=== PATIENT | male | born 1960 | race Caucasian/White ===

== ENCOUNTER 2017-02-05 17:59 | Emergency (ER) | payer OTHER, MEDICAID ==
[~2017-02-05] VITALS: Ht 172.7 cm; Wt 143.8 kg
[~2017-02-05 17:59] MED LIST: AUG500 PO; CLONIDINE HCL0.3 MG PO; LAC PO; LEV500 PO; METFORMIN HCL500 MG PO; MOTRIN800 MG PO; TAMSULOSIN HYD0.4 M1 PO; [UNRECOGNIZED DRUG - CODE] PO
[2017-02-05 18:19] VITALS: BP 127/87
== END 2017-02-05 21:32 | disposition left against medical advice (07) ==
LOC: ED 17:59
DX: Z53.21 Procedure and treatment not carried out due to patient leaving prior to being seen by health care provider (principal)

== ENCOUNTER 2017-02-17 23:07 | Inpatient (IN) | payer OTHER, MEDICAID ==
[~2017-02-17] VITALS: Ht 170.2 cm; Wt 138.2 kg
[2017-02-18] VITALS (7 sets, daily range): BP systolic 72–122; BP diastolic 31–59
[2017-02-18 00:09] LABS: PLATELET COUNT 133 x10^3mcL (130-400); RED CELL DISTRIBUTION WIDTH 14.1 % (11.5-14.5)
[2017-02-18 00:14] LABS: CALCIUM 8.6 mg/dL (8.5-10.1); CARBON DIOXIDE 20.7 mmol/L (21-32); CREATININE SERUM 2.3 mg/dL (0.7-1.3); POTASSIUM SERUM 3.4 mmol/L (3.5-5.1)
[2017-02-18 00:26] LABS: BILIRUBIN TOTAL 1.9 mg/dL (0.20-1.00); T4(THYROXINE) 12.3 ug/dL (4.7-13.3); TOTAL PROTEIN, SERUM 6.7 g/dL (6.4-8.2)
[2017-02-18 00:32] LABS: ALBUMIN 2.9 g/dL (3.4-5.0)
[2017-02-18 00:58] LABS: BAND NEUTROPHIL 9 % (0-10); METAMYELOCTE 6 % (0-2); MONOCYTE 3 % (0-7); MYELOCYTE 1 % (0-2); SEGMENTED NEUTROPHILS 78 % (37-75)
[2017-02-18 01:00] LABS: PLATELET MORPHOLOGY FEW LARGE PLATELETS; rbc morphology (normal/abnorm) NORMAL (NORMAL)
[2017-02-18] MEDS ORDERED: LAXATIVE5 M1 PO (01:03)
[2017-02-18] MEDS ORDERED: BACLOFEN10 MG PO (01:03)
[2017-02-18] MEDS ORDERED: LOSARTAN POTASS50 M1 PO (01:04)
[2017-02-18] MEDS ORDERED: ADV250/50 INH (01:04)
[2017-02-18] MEDS ORDERED: VENTOLIN H0.09 MG/A1 INH (01:04)
[2017-02-18] MEDS ORDERED: MONTELUKAST SOD10 M1 PO (01:04)
[2017-02-18 01:10] LABS: microscopic required? YES; urine erythrocyte 3+ (NEGATIVE)
[2017-02-18 02:34] LABS: CHOLESTEROL/HDL RATIO 2.1
[2017-02-18 02:40] LABS: FREE T4 1.89 ng/dL (0.76-1.46); FREE THYROXINE INDEX 4.1 ug/dL (1.4-4.5); T4(THYROXINE) 13.1 ug/dL (4.7-13.3)
[2017-02-18 03:56] LABS: T3 TOTAL 1.32 ng/mL
[2017-02-18 08:20] LABS: PLATELET COUNT 157 x10^3mcL (130-400); RED CELL DISTRIBUTION WIDTH 14.3 % (11.5-14.5)
[2017-02-18 08:31] LABS: CALCIUM 7.4 mg/dL (8.5-10.1); CARBON DIOXIDE 19.2 mmol/L (21-32); CREATININE SERUM 2.3 mg/dL (0.7-1.3); MAGNESIUM 1.1 mg/dL (1.8-2.4); PHOSPHOROUS 4.1 mg/dL (2.5-4.9); POTASSIUM SERUM 4.5 mmol/L (3.5-5.1)
[2017-02-18 09:42] LABS: BAND NEUTROPHIL 26 % (0-10); BASOPHIL 0 % (0-2); METAMYELOCTE 4 % (0-2); MONOCYTE 9 % (0-7); SEGMENTED NEUTROPHILS 57 % (37-75)
[2017-02-18 14:08] LABS: AMPHETAMINE QUAL UR NONE DETECTED (NEG <=1000)
[2017-02-19 03:46] VITALS: BP 142/56
[2017-02-19 05:58] LABS: PLATELET COUNT 182 x10^3mcL (130-400)
[2017-02-19 06:04] LABS: RED CELL DISTRIBUTION WIDTH 14.7 % (11.5-14.5)
[2017-02-19 06:05] LABS: BASOPHIL % 0 % (0-2)
[2017-02-19 06:17] LABS: CARBON DIOXIDE 23.7 mmol/L (21-32); CHLORIDE SERUM 110 mmol/L (98-107); CREATININE SERUM 1.3 mg/dL (0.7-1.3); GFR1 > 60 mL/min; GLUCOSE SERUM 175 mg/dL (74-106); MAGNESIUM 2.2 mg/dL (1.8-2.4); PHOSPHOROUS 2.7 mg/dL (2.5-4.9); POTASSIUM SERUM 3.8 mmol/L (3.5-5.1); SODIUM SERUM 142 mmol/L (136-145)
[2017-02-19 07:00] VITALS: BP 136/62
[2017-02-19 08:38] VITALS: Ht 170.2 cm; Wt 138.2 kg
[2017-02-19 11:00] VITALS: BP 121/55
[2017-02-19 21:15] VITALS: BP 132/69
[2017-02-20 05:56] VITALS: BP 145/76
[2017-02-20 07:19] LABS: BASOPHIL % 0.1 % (0-2); PLATELET COUNT 136 x10^3mcL (130-400)
[2017-02-20 07:47] LABS: CALCIUM 7.8 mg/dL (8.5-10.1); CARBON DIOXIDE 21.7 mmol/L (21-32); CHLORIDE SERUM 113 mmol/L (98-107); GFR1 > 60 mL/min; GLUCOSE SERUM 146 mg/dL (74-106); MAGNESIUM 2.3 mg/dL (1.8-2.4); PHOSPHOROUS 2.2 mg/dL (2.5-4.9); POTASSIUM SERUM 3.8 mmol/L (3.5-5.1); SODIUM SERUM 143 mmol/L (136-145)
[2017-02-20 08:57] LABS: RED CELL DISTRIBUTION WIDTH 14.6 % (11.5-14.5)
[2017-02-20 09:17] VITALS: BP 142/78
[2017-02-20 14:00] VITALS: BP 142/79
[2017-02-20 19:03] VITALS: BP 123/69
[2017-02-21 00:11] VITALS: BP 127/69
[2017-02-21 06:33] VITALS: BP 146/66
[2017-02-21 07:04] LABS: RED CELL DISTRIBUTION WIDTH 14.4 % (11.5-14.5)
[2017-02-21 07:11] LABS: PLATELET COUNT 122 x10^3mcL (130-400)
[2017-02-21 07:51] LABS: ALKALINE PHOSPHATASE 71 U/L (46-116); ALT/SGPT 82 U/L (16-63); AST/SGOT 79 U/L (15-37); BILIRUBIN TOTAL 0.59 mg/dL (0.20-1.00); CALCIUM 7.9 mg/dL (8.5-10.1); CARBON DIOXIDE 23.7 mmol/L (21-32); CHLORIDE SERUM 113 mmol/L (98-107); CREATININE SERUM 0.9 mg/dL (0.7-1.3); GFR1 > 60 mL/min; GLUCOSE SERUM 107 mg/dL (74-106); PHOSPHOROUS 2.7 mg/dL (2.5-4.9); POTASSIUM SERUM 3.6 mmol/L (3.5-5.1); SODIUM SERUM 144 mmol/L (136-145); TOTAL PROTEIN, SERUM 6.2 g/dL (6.4-8.2)
[2017-02-21 07:54] LABS: ALBUMIN 2.3 g/dL (3.4-5.0)
[2017-02-21 08:07] LABS: BAND NEUTROPHIL 1 % (0-10); MONOCYTE 3 % (0-7); SEGMENTED NEUTROPHILS 89 % (37-75); rbc morphology (normal/abnorm) NORMAL (NORMAL)
[2017-02-21 09:35] VITALS: BP 149/68
[2017-02-21 13:05] VITALS: BP 135/71
[2017-02-21] MEDS ORDERED: LAC PO (16:11)
[2017-02-21] MEDS ORDERED: LEVAQUIN500 M1 PO (16:11)
[2017-02-21 16:25] VITALS: BP 135/71
== END 2017-02-21 16:36 | disposition home or self-care (01) | DRG 871 ==
LOC: ED 23:07 → IC 02-18 01:11 → DU 02-18 01:11 → IC 02-18 02:48 → DU 02-19 17:07 → IC 02-19 17:48 → DU 02-19 17:51 → MU 02-21 09:24
PROVIDERS: Emergency Medicine; Family Medicine; ADMIT Family Medicine
PROC: 05HM33Z Insertion of Infusion Device into Right Internal Jugular Vein, Percutaneous Approach (ICD-10-PCS; principal; 2017-02-18)
PROC: B543ZZA Ultrasonography of Right Jugular Veins, Guidance (ICD-10-PCS; 2017-02-18)
DX: A41.51 Sepsis due to Escherichia coli [E. coli] (principal); R65.21 Severe sepsis with septic shock; I21.4 Non-ST elevation (NSTEMI) myocardial infarction; E43 Unspecified severe protein-calorie malnutrition; N17.0 Acute kidney failure with tubular necrosis; J96.00 Acute respiratory failure, unspecified whether with hypoxia or hypercapnia; G93.41 Metabolic encephalopathy; N39.0 Urinary tract infection, site not specified; E87.4 Mixed disorder of acid-base balance; N18.4 Chronic kidney disease, stage 4 (severe); Z68.42 Body mass index [BMI] 45.0-49.9, adult; I24.8 Other forms of acute ischemic heart disease; D68.69 Other thrombophilia; E83.42 Hypomagnesemia; E11.9 Type 2 diabetes mellitus without complications; E80.6 Other disorders of bilirubin metabolism; E87.6 Hypokalemia; G47.33 Obstructive sleep apnea (adult) (pediatric); I12.9 Hypertensive chronic kidney disease with stage 1 through stage 4 chronic kidney disease, or unspecified chronic kidney disease; E66.01 Morbid (severe) obesity due to excess calories; E83.51 Hypocalcemia; E83.39 Other disorders of phosphorus metabolism; I95.1 Orthostatic hypotension; N40.0 Benign prostatic hyperplasia without lower urinary tract symptoms; Z79.82 Long term (current) use of aspirin; Z96.652 Presence of left artificial knee joint; Z87.891 Personal history of nicotine dependence; Z79.84 Long term (current) use of oral hypoglycemic drugs
CPT/HCPCS: 36556; 36600; 80307; 83880; 84439; 94150; G0480; J0696; J1170; J1642; J1720; J1885; J1940; J1956; J2060; J2185; J2270; J2370; J2543; J2930; J3370; J3475; J3490; J7030; J7040; J7620; J7633; Q0092

== ENCOUNTER 2017-02-25 20:55 | Emergency (ER) | payer OTHER, MEDICAID ==
[~2017-02-25 20:55] MED LIST changes: +ADV250/50 INH; +BACLOFEN10 MG PO; +LAXATIVE5 M1 PO; +LEVAQUIN500 M1 PO; +LOSARTAN POTASS50 M1 PO; +MONTELUKAST SOD10 M1 PO; +VENTOLIN H0.09 MG/A1 INH
[2017-02-25 22:07] LABS: BASOPHIL % 0.4 % (0-2); PLATELET COUNT 165 x10^3mcL (130-400); RED CELL DISTRIBUTION WIDTH 14.3 % (11.5-14.5)
[2017-02-25 22:20] LABS: CALCIUM 8.8 mg/dL (8.5-10.1); CARBON DIOXIDE 28.6 mmol/L (21-32); CHLORIDE SERUM 105 mmol/L (98-107); CREATININE SERUM 0.8 mg/dL (0.7-1.3); GFR1 > 60 mL/min; GLUCOSE SERUM 104 mg/dL (74-106); POTASSIUM SERUM 3.5 mmol/L (3.5-5.1); SODIUM SERUM 140 mmol/L (136-145)
[2017-02-25 22:25] LABS: ALBUMIN 2.8 g/dL (3.4-5.0); ALKALINE PHOSPHATASE 132 U/L (46-116); ALT/SGPT 88 U/L (16-63); AST/SGOT 69 U/L (15-37); BILIRUBIN TOTAL 0.8 mg/dL (0.20-1.00); TOTAL PROTEIN, SERUM 7.2 g/dL (6.4-8.2)
[2017-02-25 22:36] LABS: CK-MB 0.7 ng/mL (0-3.6)
[2017-02-25 22:49] LABS: microscopic required? YES; urine erythrocyte 1+ (NEGATIVE)
[2017-02-26 00:18] VITALS: BP 179/91
== END 2017-02-26 00:18 | disposition home or self-care (01) ==
LOC: ED 20:55
PROVIDERS: Emergency Medicine
DX: R60.0 Localized edema (principal); I10 Essential (primary) hypertension; J45.909 Unspecified asthma, uncomplicated; R73.03 Prediabetes; N40.0 Benign prostatic hyperplasia without lower urinary tract symptoms; Z79.899 Other long term (current) drug therapy
CPT/HCPCS: 83880; Q0092

== ENCOUNTER 2017-06-09 15:03 | Emergency (ER) | payer MEDICARE, MEDICAID ==
[2017-06-09 19:04] VITALS: BP 138/80
== END 2017-06-09 19:04 | disposition home or self-care (01) ==
LOC: ED 15:03
DX: J45.901 Unspecified asthma with (acute) exacerbation (principal); I10 Essential (primary) hypertension; E11.9 Type 2 diabetes mellitus without complications; Z79.84 Long term (current) use of oral hypoglycemic drugs
CPT/HCPCS: J7512; J7613; J7644

== ENCOUNTER 2017-08-08 13:11 | Emergency (ER) | payer MEDICARE, MEDICAID ==
[~2017-08-08] VITALS: Ht 172.7 cm; Wt 138.3 kg
[2017-08-08 14:41] VITALS: BP 151/92
== END 2017-08-08 14:43 | disposition home or self-care (01) ==
LOC: ED 13:11
DX: S81.811A Laceration without foreign body, right lower leg, initial encounter (principal); W22.03XA Walked into furniture, initial encounter; Y93.89 Activity, other specified; Y92.89 Other specified places as the place of occurrence of the external cause; Y99.8 Other external cause status

== ENCOUNTER 2017-08-22 10:54 | Inpatient (IN) | payer MEDICARE, MEDICAID ==
[~2017-08-22] VITALS: Ht 172.7 cm; Wt 141.1 kg
[~2017-08-22 10:54] MED LIST changes: +MOT800 PO; -MOTRIN800 MG PO
[2017-08-22 11:59] LABS: BASOPHIL % 0.3 % (0-2)
[2017-08-22 12:00] LABS: PLATELET COUNT 90 x10^3mcL (130-400); RED CELL DISTRIBUTION WIDTH 15.2 % (11.5-14.5)
[2017-08-22] MEDS ORDERED: TERAZOSIN HCL2 MG PO (12:06)
[2017-08-22] MEDS ORDERED: ALDACTONE50 MG PO (12:06)
[2017-08-22 12:15] LABS: CALCIUM 8.9 mg/dL (8.5-10.1); CARBON DIOXIDE 23.7 mmol/L (21-32); CREATININE SERUM 1.7 mg/dL (0.7-1.3); POTASSIUM SERUM 4.4 mmol/L (3.5-5.1)
[2017-08-22 12:23] LABS: ALBUMIN 2.8 g/dL (3.4-5.0)
[2017-08-22 13:46] LABS: CHOLESTEROL/HDL RATIO 2.8; MAGNESIUM 1.9 mg/dL (1.8-2.4); PHOSPHOROUS 3.4 mg/dL (2.5-4.9)
[2017-08-22 13:50] LABS: T3 TOTAL 1.18 ng/mL
[2017-08-22 13:51] LABS: FREE T4 1.4 ng/dL (0.76-1.46); FREE THYROXINE INDEX 3.9 ug/dL (1.4-4.5); T4(THYROXINE) 13.1 ug/dL (4.7-13.3)
[2017-08-22 14:40] LABS: UA SPECIFIC GRAVITY 1.025 (1.005-1.035); microscopic required? YES; urine erythrocyte 3+ (NEGATIVE)
[2017-08-22 14:52] VITALS: BP 118/47
[2017-08-22 14:57] LABS: AMPHETAMINE QUAL UR NONE DETECTED (NEG <=1000)
[2017-08-22 17:47] VITALS: BP 135/55
[2017-08-22 18:00] VITALS: BP 135/55
[2017-08-22 18:15] VITALS: BP 135/55
[2017-08-22 22:06] VITALS: BP 137/58
[2017-08-23 06:23] VITALS: BP 132/59
[2017-08-23 06:53] LABS: BASOPHIL % 0.4 % (0-2)
[2017-08-23 06:56] LABS: CALCIUM 8.5 mg/dL (8.5-10.1); CARBON DIOXIDE 24.5 mmol/L (21-32); CHLORIDE SERUM 109 mmol/L (98-107); GFR1 > 60 mL/min; GLUCOSE SERUM 90 mg/dL (74-106); MAGNESIUM 1.8 mg/dL (1.8-2.4); PHOSPHOROUS 3.5 mg/dL (2.5-4.9); POTASSIUM SERUM 4.9 mmol/L (3.5-5.1); SODIUM SERUM 140 mmol/L (136-145)
[2017-08-23 07:02] LABS: PLATELET COUNT 89 x10^3mcL (130-400); RED CELL DISTRIBUTION WIDTH 15.6 % (11.5-14.5)
[2017-08-23 09:23] VITALS: BP 143/59
[2017-08-23 17:38] VITALS: BP 142/78
[2017-08-23 21:20] VITALS: BP 111/63
[2017-08-24 06:17] VITALS: BP 136/78
[2017-08-24 07:10] LABS: BASOPHIL % 0.6 % (0-2); CALCIUM 8.6 mg/dL (8.5-10.1); CARBON DIOXIDE 23.9 mmol/L (21-32); CHLORIDE SERUM 108 mmol/L (98-107); CREATININE SERUM 0.8 mg/dL (0.7-1.3); GFR1 > 60 mL/min; GLUCOSE SERUM 94 mg/dL (74-106); POTASSIUM SERUM 4.4 mmol/L (3.5-5.1); SODIUM SERUM 139 mmol/L (136-145)
[2017-08-24 07:11] LABS: PLATELET COUNT 99 x10^3mcL (130-400); RED CELL DISTRIBUTION WIDTH 15.5 % (11.5-14.5)
[2017-08-24 07:40] VITALS: BP 136/69
[2017-08-24 08:00] VITALS: BP 136/69
[2017-08-24] MEDS ORDERED: LAC PO (10:12)
[2017-08-24] MEDS ORDERED: BACTRIM DS1 TAB PO (12:18)
[2017-08-24 13:14] VITALS: BP 136/61
[2017-08-24 13:15] VITALS: BP 136/61
== END 2017-08-24 14:49 | disposition home or self-care (01) | DRG 871 ==
LOC: ED 10:54 → DU 12:37
PROVIDERS: Emergency Medicine; ADMIT Family Medicine
DX: A41.9 Sepsis, unspecified organism (principal); R65.21 Severe sepsis with septic shock; E43 Unspecified severe protein-calorie malnutrition; N17.0 Acute kidney failure with tubular necrosis; L03.115 Cellulitis of right lower limb; Z68.42 Body mass index [BMI] 45.0-49.9, adult; B96.20 Unspecified Escherichia coli [E. coli] as the cause of diseases classified elsewhere; S81.811S Laceration without foreign body, right lower leg, sequela; B18.2 Chronic viral hepatitis C; C44.212 Basal cell carcinoma of skin of right ear and external auricular canal; D69.6 Thrombocytopenia, unspecified; I87.8 Other specified disorders of veins; I10 Essential (primary) hypertension; D64.9 Anemia, unspecified; R31.9 Hematuria, unspecified; J45.909 Unspecified asthma, uncomplicated; M19.90 Unspecified osteoarthritis, unspecified site; N40.0 Benign prostatic hyperplasia without lower urinary tract symptoms; E66.01 Morbid (severe) obesity due to excess calories; Z96.652 Presence of left artificial knee joint; Z79.84 Long term (current) use of oral hypoglycemic drugs; W22.8XXS Striking against or struck by other objects, sequela
CPT/HCPCS: 83880; 84439; 94150; J0696; J1940; J7030; J7040; J7620; Q0092

== ENCOUNTER 2017-09-10 13:39 | Inpatient (IN) | payer OTHER, MEDICAID ==
[~2017-09-10] VITALS: Ht 172.7 cm; Wt 132.5 kg
[~2017-09-10 13:39] MED LIST changes: +ALDACTONE50 MG PO; +BACTRIM DS1 TAB PO; +TERAZOSIN HCL2 MG PO
[2017-09-10 17:20] LABS: BASOPHIL % 0.5 % (0-2)
[2017-09-10 17:24] LABS: PLATELET COUNT 89 x10^3mcL (130-400); RED CELL DISTRIBUTION WIDTH 14.7 % (11.5-14.5)
[2017-09-10 17:37] LABS: ALBUMIN 3.4 g/dL (3.4-5.0); ALKALINE PHOSPHATASE 88 U/L (46-116); ALT/SGPT 121 U/L (16-63); AST/SGOT 109 U/L (15-37); BILIRUBIN TOTAL 0.6 mg/dL (0.20-1.00); CALCIUM 8.8 mg/dL (8.5-10.1); CARBON DIOXIDE 20.1 mmol/L (21-32); CHLORIDE SERUM 108 mmol/L (98-107); CREATININE SERUM 2.3 mg/dL (0.7-1.3); GFR1 31 mL/min; GLUCOSE SERUM 101 mg/dL (74-106); SODIUM SERUM 135 mmol/L (136-145); TOTAL PROTEIN, SERUM 7.7 g/dL (6.4-8.2)
[2017-09-10 17:39] LABS: POTASSIUM SERUM 7.7 mmol/L (3.5-5.1)
[2017-09-10 17:43] LABS: C REACTIVE PROTEIN < 0.2 mg/dL (<=0.9)
[2017-09-10 17:54] LABS: T3 TOTAL 1.27 ng/mL
[2017-09-10 18:03] LABS: microscopic required? YES; urine erythrocyte NEGATIVE (NEGATIVE)
[2017-09-10 18:07] LABS: FREE T4 1.34 ng/dL (0.76-1.46); FREE THYROXINE INDEX 3.7 ug/dL (1.4-4.5)
[2017-09-10 18:14] LABS: ERYTHROCYTE SED RATE 44 mm/hr (0-20)
[2017-09-10 19:07] LABS: PHOSPHOROUS 5.1 mg/dL (2.5-4.9)
[2017-09-10 19:08] LABS: CHOLESTEROL/HDL RATIO 2.4
[2017-09-10 19:19] LABS: AMPHETAMINE QUAL UR NONE DETECTED (NEG <=1000)
[2017-09-10] MEDS ORDERED: NORCO1 TA2 PO (19:30)
[2017-09-10 19:51] VITALS: BP 139/49
[2017-09-10 22:00] VITALS: BP 139/45; BP 139/49
[2017-09-11 05:57] VITALS: BP 130/70
[2017-09-11 06:47] LABS: CALCIUM 9.1 mg/dL (8.5-10.1); CARBON DIOXIDE 18.8 mmol/L (21-32); CREATININE SERUM 1.5 mg/dL (0.7-1.3); MAGNESIUM 1.8 mg/dL (1.8-2.4); PHOSPHOROUS 4.6 mg/dL (2.5-4.9)
[2017-09-11 07:07] LABS: POTASSIUM SERUM 6.1 mmol/L (3.5-5.1)
[2017-09-11 08:05] LABS: CARBON DIOXIDE 18.9 mmol/L (21-32); CREATININE SERUM 1.4 mg/dL (0.7-1.3)
[2017-09-11 08:25] LABS: POTASSIUM SERUM 6.2 mmol/L (3.5-5.1)
[2017-09-11 08:46] LABS: BASOPHIL % 0.2 % (0-2)
[2017-09-11 09:24] VITALS: BP 153/72
[2017-09-11 09:24] LABS: PLATELET COUNT 94 x10^3mcL (130-400); RED CELL DISTRIBUTION WIDTH 14.9 % (11.5-14.5)
[2017-09-11 12:52] LABS: CALCIUM 9.3 mg/dL (8.5-10.1); CARBON DIOXIDE 20.9 mmol/L (21-32); CHLORIDE SERUM 109 mmol/L (98-107); CREATININE SERUM 1.3 mg/dL (0.7-1.3); GFR1 > 60 mL/min; GLUCOSE SERUM 99 mg/dL (74-106); POTASSIUM SERUM 5.5 mmol/L (3.5-5.1); SODIUM SERUM 139 mmol/L (136-145)
[2017-09-11 13:47] VITALS: BP 154/84
[2017-09-11 16:08] VITALS: BP 160/75
[2017-09-11 21:20] VITALS: BP 132/68
[2017-09-12 06:27] LABS: BASOPHIL % 0.5 % (0-2); RED CELL DISTRIBUTION WIDTH 14.5 % (11.5-14.5)
[2017-09-12 06:34] VITALS: BP 146/76
[2017-09-12 06:41] LABS: CALCIUM 8.4 mg/dL (8.5-10.1); CARBON DIOXIDE 19.3 mmol/L (21-32); CHLORIDE SERUM 110 mmol/L (98-107); CREATININE SERUM 1.1 mg/dL (0.7-1.3); GFR1 > 60 mL/min; GLUCOSE SERUM 108 mg/dL (74-106); MAGNESIUM 1.7 mg/dL (1.8-2.4); PHOSPHOROUS 4.1 mg/dL (2.5-4.9); POTASSIUM SERUM 4.7 mmol/L (3.5-5.1); SODIUM SERUM 139 mmol/L (136-145)
[2017-09-12 07:19] LABS: PLATELET COUNT 94 x10^3mcL (130-400)
[2017-09-12] MEDS ORDERED: LASIX20 MG PO (10:09)
[2017-09-12] MEDS ORDERED: MAGNESIUM OXID400 MG PO (10:10)
[2017-09-12 11:03] VITALS: BP 146/76
== END 2017-09-12 12:50 | disposition home or self-care (01) | DRG 682 ==
LOC: ED 13:39 → DU 18:41 → MU 18:41 → DU 22:27 → MU 22:27 → DU 09-12 12:50
PROVIDERS: Family Medicine; Specialist; ADMIT Family Medicine
DX: I12.9 Hypertensive chronic kidney disease with stage 1 through stage 4 chronic kidney disease, or unspecified chronic kidney disease (principal); N17.0 Acute kidney failure with tubular necrosis; Z68.41 Body mass index [BMI] 40.0-44.9, adult; E87.5 Hyperkalemia; E11.9 Type 2 diabetes mellitus without complications; N18.9 Chronic kidney disease, unspecified; J45.909 Unspecified asthma, uncomplicated; R80.9 Proteinuria, unspecified; B18.2 Chronic viral hepatitis C; G47.33 Obstructive sleep apnea (adult) (pediatric); M17.11 Unilateral primary osteoarthritis, right knee; Z96.652 Presence of left artificial knee joint; Z79.84 Long term (current) use of oral hypoglycemic drugs
CPT/HCPCS: 36600; 83880; 84439; 94150; J1815; J3490; J7030; J7620; Q0092

== ENCOUNTER 2017-09-13 15:35 | Emergency (ER) | payer OTHER, MEDICAID ==
[~2017-09-13] VITALS: Ht 172.7 cm; Wt 136.5 kg
[~2017-09-13 15:35] MED LIST changes: +LASIX20 MG PO; +MAGNESIUM OXID400 MG PO; +NORCO1 TA2 PO
[2017-09-13 17:02] LABS: BASOPHIL % 0.4 % (0-2)
[2017-09-13 17:09] LABS: PLATELET COUNT 85 x10^3mcL (130-400); RED CELL DISTRIBUTION WIDTH 14.8 % (11.5-14.5)
[2017-09-13 17:44] LABS: CALCIUM 7.9 mg/dL (8.5-10.1); CARBON DIOXIDE 20.5 mmol/L (21-32); POTASSIUM SERUM 5.3 mmol/L (3.5-5.1)
[2017-09-13 17:50] LABS: BILIRUBIN TOTAL 0.65 mg/dL (0.20-1.00); TOTAL PROTEIN, SERUM 6.8 g/dL (6.4-8.2)
[2017-09-13 17:51] LABS: ALBUMIN 2.9 g/dL (3.4-5.0)
[2017-09-13 18:33] VITALS: BP 86/76
== END 2017-09-13 18:33 | disposition home or self-care (01) ==
LOC: ED 15:35
PROVIDERS: Emergency Medicine
DX: N28.9 Disorder of kidney and ureter, unspecified (principal); E87.5 Hyperkalemia; E86.0 Dehydration; J45.909 Unspecified asthma, uncomplicated; I10 Essential (primary) hypertension
CPT/HCPCS: 36415

== ENCOUNTER 2017-09-24 13:49 | Emergency (ER) | payer MEDICARE, MEDICAID ==
[2017-09-24 15:05] VITALS: BP 123/58
== END 2017-09-24 16:53 | disposition left against medical advice (07) ==
LOC: ED 13:49
DX: Z53.21 Procedure and treatment not carried out due to patient leaving prior to being seen by health care provider (principal)

== ENCOUNTER 2018-01-16 21:20 | Emergency (ER) | payer OTHER, MEDICAID ==
[~2018-01-16] VITALS: Ht 172.7 cm; Wt 149.7 kg
[2018-01-16 21:52] VITALS: Ht 172.7 cm; Wt 149.7 kg
[2018-01-17 00:05] VITALS: BP 144/76
== END 2018-01-17 00:05 | disposition home or self-care (01) ==
LOC: ED 21:20
DX: N39.0 Urinary tract infection, site not specified (principal); I10 Essential (primary) hypertension; J45.909 Unspecified asthma, uncomplicated; G89.29 Other chronic pain; M25.569 Pain in unspecified knee

== ENCOUNTER 2018-05-16 10:14 | Emergency (ER) | payer OTHER, MEDICAID ==
[~2018-05-16] VITALS: Ht 172.7 cm; Wt 146.5 kg
[2018-05-16 10:20] VITALS: BP 125/85; Ht 172.7 cm; Wt 146.5 kg
== END 2018-05-16 13:19 | disposition home or self-care (01) ==
LOC: ED 10:14
DX: S81.012A Laceration without foreign body, left knee, initial encounter (principal); E11.9 Type 2 diabetes mellitus without complications; I10 Essential (primary) hypertension; W18.39XA Other fall on same level, initial encounter; Y93.89 Activity, other specified; Y92.89 Other specified places as the place of occurrence of the external cause; Y99.8 Other external cause status
CPT/HCPCS: J2001

== ENCOUNTER 2018-12-29 09:31 | Emergency (ER) | payer OTHER, MEDICAID ==
[~2018-12-29] VITALS: Ht 172.7 cm; Wt 151.0 kg
[2018-12-29 09:36] VITALS: Ht 172.7 cm; Wt 151.0 kg
[2018-12-29 13:30] VITALS: BP 155/91
== END 2018-12-29 13:30 | disposition home or self-care (01) ==
LOC: ED 09:31
DX: I10 Essential (primary) hypertension (principal); F41.9 Anxiety disorder, unspecified; J45.909 Unspecified asthma, uncomplicated; G89.29 Other chronic pain

== ENCOUNTER 2019-03-17 08:09 | Emergency (ER) | payer OTHER, MEDICAID ==
[~2019-03-17] VITALS: Ht 172.7 cm; Wt 143.8 kg
[2019-03-17 08:24] VITALS: Ht 172.7 cm; Wt 143.8 kg
[2019-03-17 09:39] LABS: UA SPECIFIC GRAVITY 1.025 (1.005-1.035); microscopic required? YES; urine erythrocyte 3+ (NEGATIVE)
[2019-03-17 09:53] VITALS: BP 139/78
== END 2019-03-17 09:53 | disposition home or self-care (01) ==
LOC: ED 08:09
PROVIDERS: Emergency Medicine
DX: N39.0 Urinary tract infection, site not specified (principal); J45.909 Unspecified asthma, uncomplicated; I10 Essential (primary) hypertension; G89.29 Other chronic pain; M25.569 Pain in unspecified knee
CPT/HCPCS: 82962

== ENCOUNTER 2019-04-12 12:57 | Emergency (ER) | payer OTHER, MEDICAID ==
[~2019-04-12] VITALS: Ht 167.6 cm; Wt 144.7 kg
[2019-04-12 13:02] VITALS: Ht 167.6 cm; Wt 144.7 kg
[2019-04-12 15:03] LABS: microscopic required? YES; urine erythrocyte NEGATIVE (NEGATIVE)
[2019-04-12 15:07] VITALS: BP 138/94
== END 2019-04-12 15:07 | disposition home or self-care (01) ==
LOC: ED 12:57
PROVIDERS: Emergency Medicine
DX: N30.00 Acute cystitis without hematuria (principal); J45.909 Unspecified asthma, uncomplicated; I10 Essential (primary) hypertension; G89.29 Other chronic pain
CPT/HCPCS: 82962

== ENCOUNTER 2019-05-24 11:32 | Inpatient (IN) | payer OTHER, MEDICAID ==
[~2019-05-24] VITALS: Ht 170.2 cm; Wt 125.4 kg
[2019-05-24 11:44] VITALS: Ht 170.2 cm; Wt 125.4 kg
--- NOTE | 2019-05-24 12:15 | NUR ---
PATIENT PRESENTS TO ED WITH C/O SOB SINCE 399 TODAY. STS HAS HISTORY OF ASTHMA. INSPIRATORY CRACKLES NOTED. DR. MUÑOZ AT BEDSIDE PERFORMED MSE
[2019-05-24 12:32] LABS: BASOPHIL % 0.2 % (0-2)
[2019-05-24 12:35] LABS: PLATELET COUNT 99 x10^3mcL (130-400); RED CELL DISTRIBUTION WIDTH 16.6 % (11.5-14.5)
[2019-05-24 12:41] LABS: CALCIUM 9.1 mg/dL (8.5-10.1); CARBON DIOXIDE 25.9 mmol/L (21-32); CHLORIDE SERUM 104 mmol/L (98-107); GFR1 > 60 mL/min; GLUCOSE SERUM 87 mg/dL (74-106); POTASSIUM SERUM 4.3 mmol/L (3.5-5.1); SODIUM SERUM 138 mmol/L (136-145)
[2019-05-24 12:54] LABS: ALKALINE PHOSPHATASE 69 U/L (46-116); ALT/SGPT 39 U/L (16-63); AST/SGOT 31 U/L (15-37); BILIRUBIN TOTAL 1.1 mg/dL (0.20-1.00); TOTAL PROTEIN, SERUM 7.3 g/dL (6.4-8.2)
[2019-05-24 13:03] LABS: ALBUMIN 3.3 g/dL (3.4-5.0)
[2019-05-24 13:22] LABS: MAGNESIUM 1.7 mg/dL (1.8-2.4); PHOSPHOROUS 2.6 mg/dL (2.5-4.9)
[2019-05-24] MEDS ORDERED: MOT800 PO (13:30)
[2019-05-24] MEDS ORDERED: NOR10T PO (13:30)
[2019-05-24] MEDS ORDERED: BREO ELLIPTA1 PO1 IH (13:30)
[2019-05-24] MEDS ORDERED: INCRUSE EL62.5 MCG/A IH (13:31)
[2019-05-24] MEDS ORDERED: POTASSIUM CHLO10 MEQ PO (13:31)
[2019-05-24] MEDS ORDERED: KAPVAY0.1 MG PO (13:32)
[2019-05-24] MEDS ORDERED: VITAMIN D2400 UNIT (13:33)
[2019-05-24] MEDS ORDERED: BENICAR HCT1 TAB PO (13:35)
[2019-05-24] MEDS ORDERED: ADV250/50 INH (13:35)
[2019-05-24 13:57] LABS: microscopic required? NO
[2019-05-24 14:17] LABS: urine erythrocyte NEGATIVE (NEGATIVE)
--- NOTE | 2019-05-24 15:08 | NUR ---
PATIENT RESTING AT BEDSIDE IN NAD
--- NOTE | 2019-05-24 15:25 | NUR ---
REPORT GIVEN TO CHIN BECK
[2019-05-24 16:20] VITALS: BP 132/72
--- NOTE | 2019-05-24 16:24 | NUR ---
RECEIVED PT FROM ED VIA SHAKIRA. ORIENTED PT TO ROOM AND SURRUONDINGS. IV NOTED TO RH PATENT AND INTACT. TELE 4 PLACED ON PT READING NSR. INSTRUCTED PT ON THE USE OF CALL LIGHT FOR ASSISTANCE. ENDORSED PT TO PRIMARY NURSE EBONY
--- NOTE | 2019-05-24 18:11 | NUR ---
PT IS SITTING UP AT THE SIDE OF THE BED. PT LOOKS TO BE IN NO ACUTE DISTRESS AT THIS TIME AND DENIES ANY PAIN. RESPIRATIONS EVEN AND UNLABORED ON 2L NC. IV TO RIGHT HAND IS PATENT WITH NO SIGNS OF ERYTHEMA OR SWELLING WITH IV FLUIDS INFUSING, IV TO LEFT HAND IS PATENT WITH NO SIGNS OF ERYTHEMA OR SWELLING AND IS H/L. SWELLING TO BLE AND DISCOLORATION PRESENT. PT HAS TREMORS TO BUE AND PT STATES THAT THE TREMORS ARE NORMAL AND CHRONIC. PT'S FAMILY MEMBER AT BEDSIDE. BED IN LOWEST POSITION, CALL LIGHT WITHIN REACH. WILL CONITNUE TO MONITOR.
--- NOTE | 2019-05-24 18:14 | NUR ---
WILL ENDORSE TO ONCOMING SHIFT.
--- NOTE | 2019-05-24 19:24 | NUR ---
RECEIVED PT FROM PREVIOUS SHIFT. PT A/OX4. SITTING UP AT BEDSIDE. DENIES PAIN. DENIES SOB ON RA. IV PATENT, INFUSING NS AT 40ML/HR WITH NO S/S OF INFILTRATION. CALL LIGHT WITHIN REACH, BED IN LOW POSITION. WILL CONTINUE TO MONITOR.
[2019-05-24 21:29] VITALS: BP 129/71
[2019-05-25 05:57] VITALS: BP 136/68
--- NOTE | 2019-05-25 07:05 | NUR ---
RECEIVED PT FROM NIGHT NURSE. PT IS LAYING DOWN IN BED WITH HOB UP AND EYES OPEN WATCHING TV. PT LOOKS TO BE IN NO ACUTE DISTRESS AND DENIES ANY PAIN AT THIS TIME. RESPIRATIONS EVEN AND UNLABORED ON 2L NC. IV SITE TO LEFT AND RIGHT HAND ARE PATENT WITH NO SIGNS OF ERYTHEMA OR SWELLING WITH IV FLUIDS INFUSING TO RIGHT HAND. FAMILY REQUESTING TO HAVE BLOOD PRESSURE MEDICATION CHANGED TO HOME MEDICATION, WILL PAGE THE DR. TELE MONITOR 4 PRESENT. BED IN LOWEST POSITION, CALL LIGHT WITHIN REACH. WILL CONITNUE TO MONITOR.
[2019-05-25 07:22] LABS: BASOPHIL % 0 % (0-2); PLATELET COUNT 95 x10^3mcL (130-400)
[2019-05-25 07:27] LABS: CALCIUM 8.5 mg/dL (8.5-10.1); CARBON DIOXIDE 20.8 mmol/L (21-32); CHLORIDE SERUM 107 mmol/L (98-107); GFR1 > 60 mL/min; GLUCOSE SERUM 157 mg/dL (74-106); POTASSIUM SERUM 4.3 mmol/L (3.5-5.1); SODIUM SERUM 140 mmol/L (136-145)
[2019-05-25 08:06] VITALS: BP 113/79
[2019-05-25 12:16] VITALS: BP 159/59
--- NOTE | 2019-05-25 12:20 | NUR ---
PT IS SITTING UP ON THE EDGE OF THE BED READING. PT LOOKS TO BE IN NO ACUTE DISTRESS AT THIS TIME. RESPIRATIONS EVEN AND UNLABORED ON ROOM AIR AND IS SATTING AT 97%. PT DENIES ANY SOB AND STATES THAT HE HAS BEEN ABLE TO WALK TO THE RESTROOM WITHOUT DIFFICULTY. DR. WEINER GAVE PT AN INCENTIVE SPIROMETER, REINFORCE EDUCATION ON THE USE OF INCENTIVE SPIROMETER AND PT VERBALIZED THE USE OF THE INCENTIVE SPIROMETER. IV TO RIGHT HAND PATENT AND INFUSING WITH NO SIGNS OF ERYTHEMA OR SWELLING. BED IN LOWEST POSITION, CALL LIGHT WIHTIN REACH. WILL ENDORSE TO ONCOMING SHIFT.
--- NOTE | 2019-05-25 14:15 | NUR ---
PT COMPLAINING OF PAIN 7/10 TO THE RIGHT KNEE. PT REQUESTING PAIN MEDICATION. LEG ELEVATED. WILL MEDICATE ACCORDING TO EMAR.
[2019-05-25 16:00] VITALS: BP 125/56
--- NOTE | 2019-05-25 19:01 | NUR ---
PT IS SITTING UP ON THE EDGE OF THE BED. PT LOOKS TO BE IN NO ACUTE DISTRESS AT THIS TIME. RESPIRATIONS EVEN AND UNLABORED ON ROOM AIR AND DENIES ANY SOB AT THIS TIME. IV SITE PATENT WITH NO SIGNS OF ERYTHEMA OR SWELLING WITH IV FLUIDS INFUSING. BED IN LOWEST POSITION, CALL LIGHT WITHIN REACH. WILL ENDORSE TO ONCOMING SHIFT.
--- NOTE | 2019-05-25 19:05 | NUR ---
RECEIVED PT FROM PREVIOUS SHIFT NURSE. PT AOX4, DENIES KAUFFMAN/DIZZINESS. SPEECH CLEAR. ON TELE #8, SR WITH ELEVATED T WAVE, HR 81. DENIES CP/PRESSURE. DENIES SOB/DIFFICULTY BREATHING, ON RA. IV TO R. HAND, INTACT AND PATENT. BED IN LOWEST POSITION. CALL LIGHT WITHIN REACH. WILL CONTINUE TO MONITOR.
[2019-05-25 19:56] VITALS: BP 134/74
--- NOTE | 2019-05-26 01:16 | NUR ---
PT RESTING IN BED. RR EVEN AND UNLABORED. IN NO ACUTE DISTRESS. CALL LIGHT WITHIN REACH. BED IN LOWEST POSITION. WILL CONTINUE TO MONITOR.
[2019-05-26 05:45] VITALS: BP 124/69
--- NOTE | 2019-05-26 07:11 | NUR ---
RECEIVED PT FROM NIGHT NURSE. PT IS SITTING UP AT THE EDGE OF THE BED. RESPIRATIONS EVEN AND UNLABORED ON ROOM AIR. PT LOOKS TO BE IN NO ACUTE DISTRESS AND DENIES ANY PAIN AT THIS TIME. TELE MONITOR PRESENT. IV TO RIGHT HAND PATENT WITH NO SIGNS OF ERYTHEMA OR SWELLING WITH IV FLUIDS INFUSING. BED IN LOWEST POSITION, CALL LIGHT WITHIN REACH. WILL CONITNUE TO MONITOR.
[2019-05-26 07:44] VITALS: BP 121/63
--- NOTE | 2019-05-26 11:30 | NUR ---
ECHO BEING PERFORMED AT BEDSIDE. PT LOOKS TO BE IN NO ACUTE DISTRESS AT THIS TIME. CALL LIGHT WITHIN REACH. WILL CONINTUE TO MONITOR.
[2019-05-26 11:49] VITALS: BP 126/57
[2019-05-26] MEDS ORDERED: LEVAQUIN750 MG PO (12:30)
[2019-05-26 13:11] VITALS: BP 126/57
--- NOTE | 2019-05-26 15:30 | NUR ---
PT AWAKE, ALERT AND ORIENTED AT TIME OF DISCHARGE. PT LOOKS TO BE IN NO ACUTE DISTRESS AND DENIES ANY PAIN AT TIME OF DISCHARGE. PT DISCHARGED HOME AND WENT TO LOBBY VIA WHEELCHAIR ACCOMPANIED BY NURSE AND FAMILY MEMBER WITH BELONGINGS IN HAND. PROVIDED PT WITH EDUCATION AND PRESCRIPTIONS. INFORMED PT OF THE NEED TO FINISH FULL COURSE OF ANTIOBIOTICS. PT VERBLALIZED UNDERSTANDING OF EDUCATION AND PRESCIPRITONS. INFORMED PT OF THE NEED TO MAKE A FOLLOW UP APPOITNMENT WITH PCP WITHIN 1 WEEK OF DISCHARGE. PT VERBALIZED UNDERSTANDING. IV CATHETER REMOVED, CATHETER FULLY INTACT. TELE MONITOR REMOVED AND RETURNED TO TELE STATION. ID BAND REMOVED. ALL QUESTIONS AND CONCERNS ADDRESSED.
== END 2019-05-26 15:49 | disposition home or self-care (01) | DRG 291 ==
LOC: ED 11:32 → DU 14:24
PROVIDERS: Emergency Medicine; ADMIT Internal Medicine
DX: I11.0 Hypertensive heart disease with heart failure (principal); J96.01 Acute respiratory failure with hypoxia; J45.901 Unspecified asthma with (acute) exacerbation; E66.2 Morbid (severe) obesity with alveolar hypoventilation; Z68.42 Body mass index [BMI] 45.0-49.9, adult; I50.33 Acute on chronic diastolic (congestive) heart failure; R73.03 Prediabetes; B18.2 Chronic viral hepatitis C; E11.9 Type 2 diabetes mellitus without complications; Z79.84 Long term (current) use of oral hypoglycemic drugs; Z79.891 Long term (current) use of opiate analgesic; Z79.1 Long term (current) use of non-steroidal anti-inflammatories (NSAID); Z96.652 Presence of left artificial knee joint
CPT/HCPCS: 36600; 82962; 83880; 87804; G0378; J0456; J0696; J1650; J1940; J1956; J2543; J2920; J2930; J3370; J3490; J7030; J7050; J7613; J7620; J7626; J7644; Q0092

== ENCOUNTER 2019-12-23 11:37 | Emergency (ER) | payer OTHER, MEDICAID ==
[~2019-12-23] VITALS: Ht 172.7 cm; Wt 127.0 kg
[~2019-12-23 11:37] MED LIST changes: +BENICAR HCT1 TAB PO; +BREO ELLIPTA1 PO1 IH; +INCRUSE EL62.5 MCG/A IH; +KAPVAY0.1 MG PO; +LEVAQUIN750 MG PO; +NOR10T PO; +POTASSIUM CHLO10 MEQ PO; +VITAMIN D2400 UNIT
[2019-12-23 12:07] VITALS: BP 137/76; Ht 172.7 cm; Wt 127.0 kg
== END 2019-12-23 14:33 | disposition home or self-care (01) ==
LOC: ED 11:37
DX: J98.01 Acute bronchospasm (principal); I10 Essential (primary) hypertension; E11.9 Type 2 diabetes mellitus without complications; G89.29 Other chronic pain; E66.9 Obesity, unspecified
CPT/HCPCS: 87804; J0696; J7613

== ENCOUNTER 2019-12-25 07:30 | Emergency (ER) | payer OTHER, MEDICAID ==
[~2019-12-25] VITALS: Ht 167.6 cm; Wt 129.3 kg
[2019-12-25 07:37] VITALS: Ht 167.6 cm; Wt 129.3 kg
[2019-12-25 08:50] VITALS: BP 134/80
== END 2019-12-25 08:50 | disposition home or self-care (01) ==
LOC: ED 07:30
DX: J40 Bronchitis, not specified as acute or chronic (principal); I10 Essential (primary) hypertension; E11.9 Type 2 diabetes mellitus without complications

== ENCOUNTER 2020-09-13 15:35 | Emergency (ER) | payer OTHER, MEDICAID ==
[~2020-09-13] VITALS: Ht 167.6 cm; Wt 131.5 kg
[2020-09-13 15:51] VITALS: Ht 167.6 cm; Wt 131.5 kg
[2020-09-13 17:17] VITALS: BP 125/70
== END 2020-09-13 17:17 | disposition home or self-care (01) ==
LOC: ED 15:35
DX: R60.0 Localized edema (principal); J45.909 Unspecified asthma, uncomplicated; G89.29 Other chronic pain; E11.22 Type 2 diabetes mellitus with diabetic chronic kidney disease; I12.9 Hypertensive chronic kidney disease with stage 1 through stage 4 chronic kidney disease, or unspecified chronic kidney disease; N18.9 Chronic kidney disease, unspecified; E66.9 Obesity, unspecified

== ENCOUNTER 2020-09-16 19:08 | Emergency (ER) | payer OTHER, MEDICAID ==
[~2020-09-16] VITALS: Ht 172.7 cm; Wt 129.7 kg
[2020-09-16 19:13] VITALS: Ht 172.7 cm; Wt 129.7 kg
[2020-09-16 22:01] LABS: microscopic required? NO
[2020-09-16 22:05] LABS: BASOPHIL % 0.3 % (0-2); PLATELET COUNT 102 x10^3mcL (130-400); RED CELL DISTRIBUTION WIDTH 14.2 % (11.5-14.5)
[2020-09-16 22:11] LABS: CALCIUM 8.7 mg/dL (8.5-10.1); CARBON DIOXIDE 25.2 mmol/L (21-32); CHLORIDE SERUM 103 mmol/L (98-107); GFR1 > 60 mL/min; GLUCOSE SERUM 110 mg/dL (74-106); POTASSIUM SERUM 4.2 mmol/L (3.5-5.1); SODIUM SERUM 138 mmol/L (136-145)
[2020-09-16 22:15] LABS: ALBUMIN 3.7 g/dL (3.4-5.0); ALKALINE PHOSPHATASE 102 U/L (46-116); ALT/SGPT 50 U/L (16-63); AST/SGOT 50 U/L (15-37); BILIRUBIN TOTAL 1.21 mg/dL (0.20-1.00); LIPASE 76 IU/L (73-393)
[2020-09-16 22:27] LABS: UA SPECIFIC GRAVITY 1.025 (1.005-1.035); urine erythrocyte NEGATIVE (NEGATIVE)
[2020-09-17 06:37] VITALS: BP 111/62
== END 2020-09-17 06:37 | disposition short-term general hospital (02) ==
LOC: ED 19:08 → MU 09-17 00:45
PROVIDERS: Emergency Medicine
DX: K61.0 Anal abscess (principal)
CPT/HCPCS: G0378; J0295; J1885; J3490; J7030; Q9967